=== PATIENT | female | born 1935 | race Caucasian/White ===

== ENCOUNTER 2024-06-14 12:32 | Outpatient (CLI) | payer MEDICARE, OTHER | END 2024-06-14 12:33 | disposition home or self-care (01) | LOC: CSHULT 12:32 | PROVIDERS: ATTEND Psychiatry & Neurology Neurology | DX: R41.3 Other amnesia (principal); I49.9 Cardiac arrhythmia, unspecified; I70.0 Atherosclerosis of aorta; I35.0 Nonrheumatic aortic (valve) stenosis; I08.3 Combined rheumatic disorders of mitral, aortic and tricuspid valves | CPT/HCPCS: 36415; 70553; 76376; 82565; 93306 ==